=== PATIENT | female | born 1985 | race Caucasian/White ===

== ENCOUNTER 2016-08-18 22:04 | Emergency (ER) | payer OTHER ==
[~2016-08-18] VITALS: Ht 165.1 cm; Wt 54.5 kg
[2016-08-18 22:19] VITALS: TEMP 97.9
[2016-08-18 23:19] LABS: PH 6 (5-8); SQUAMOUS EPITHELIAL 0-2 /hpf; URINE APPEARANCE Clear; URINE BACTERIA None Seen /hpf; URINE BILIRUBIN Negative (NEGATIVE); URINE BLOOD Negative (NEGATIVE); URINE COLOR Straw; URINE GLUCOSE Negative (NEGATIVE); URINE KETONE Negative (NEGATIVE); URINE RBC 0-2 /hpf; URINE UROBILINOGEN Negative (NEGATIVE); URINE WBC 0-2 /hpf
[2016-08-19] MEDS ORDERED: NORCO 325 MG-51 TAB PO (00:07)
[2016-08-19 00:18] VITALS: BP 114/64; PULSE 74
== END 2016-08-19 00:18 | disposition home or self-care (01) ==
LOC: COL.ER 22:04
PROVIDERS: Emergency Medicine
DX: S20.222A Contusion of left back wall of thorax, initial encounter (principal); S20.221A Contusion of right back wall of thorax, initial encounter; W22.01XA Walked into wall, initial encounter; Y93.83 Activity, rough housing and horseplay; Y92.009 Unspecified place in unspecified non-institutional (private) residence as the place of occurrence of the external cause

== ENCOUNTER 2016-08-26 23:37 | Emergency (ER) | payer OTHER ==
[~2016-08-26] VITALS: Ht 165.1 cm; Wt 54.5 kg
[~2016-08-26 23:37] MED LIST: NORCO 325 MG-51 TAB PO
[2016-08-26 23:44] VITALS: BP 105/54; TEMP 98.2
[2016-08-27] MEDS ORDERED: ZITHROMAX 250M250 MG PO (01:33)
[2016-08-27] MEDS ORDERED: PREDNISONE20 MG PO (01:33)
[2016-08-27 01:41] VITALS: PULSE 72
== END 2016-08-27 01:43 | disposition home or self-care (01) ==
LOC: COL.ER 23:37
DX: J20.9 Acute bronchitis, unspecified (principal); F17.210 Nicotine dependence, cigarettes, uncomplicated
CPT/HCPCS: J7512

== ENCOUNTER 2017-02-25 14:34 | Emergency (ER) | payer BC ==
[~2017-02-25] VITALS: Ht 165.1 cm; Wt 54.5 kg
[~2017-02-25 14:34] MED LIST changes: +PREDNISONE20 MG PO; +ZITHROMAX 250M250 MG PO
[2017-02-25 14:38] VITALS: TEMP 98.9
[2017-02-25 16:11] LABS: PH 8 (5-8); URINE BACTERIA None Seen /hpf; URINE BILIRUBIN Negative (NEGATIVE); URINE BLOOD Negative (NEGATIVE); URINE COLOR Yellow; URINE GLUCOSE Negative (NEGATIVE); URINE KETONE Negative (NEGATIVE); URINE RBC 0-2 /hpf; URINE UROBILINOGEN Negative (NEGATIVE); URINE WBC 0-2 /hpf
[2017-02-25 16:13] LABS: URINE APPEARANCE Clear
[2017-02-25] MEDS ORDERED: FLEXERIL 1010 MG/TAB PO (16:17)
[2017-02-25 17:06] VITALS: BP 96/66; PULSE 50
== END 2017-02-25 17:05 | disposition home or self-care (01) ==
LOC: COL.ER 14:34
PROVIDERS: Physician Assistant
DX: S29.011A Strain of muscle and tendon of front wall of thorax, initial encounter (principal); M62.830 Muscle spasm of back; F17.210 Nicotine dependence, cigarettes, uncomplicated; Z90.49 Acquired absence of other specified parts of digestive tract; Z87.19 Personal history of other diseases of the digestive system; X58.XXXA Exposure to other specified factors, initial encounter

== ENCOUNTER 2017-10-20 09:29 | Emergency (ER) | payer SELFPAY ==
[~2017-10-20] VITALS: Ht 165.1 cm; Wt 68.2 kg
[~2017-10-20 09:29] MED LIST changes: +FLEXERIL 1010 MG/TAB PO; +PROTONIX 40MG T40 MG PO
[2017-10-20 09:31] VITALS: TEMP 98
[2017-10-20 10:24] LABS: COLLECTION METHOD CLEAN CATCH
[2017-10-20 10:30] LABS: PH 6 (5-8); SQUAMOUS EPITHELIAL 0-2 /hpf; URINE APPEARANCE Hazy; URINE BACTERIA None Seen /hpf; URINE BILIRUBIN Negative (NEGATIVE); URINE BLOOD Negative (NEGATIVE); URINE COLOR Yellow; URINE GLUCOSE Negative (NEGATIVE); URINE KETONE Negative (NEGATIVE); URINE LEUKOCYTE ESTERASE Negative (NEGATIVE); URINE NITRATE Negative (NEGATIVE); URINE PROTEIN(semi-quant) Negative (NEGATIVE); URINE RBC 0-2 /hpf; URINE UROBILINOGEN Negative (NEGATIVE)
[2017-10-20 10:35] LABS: BASO # 0.1 (0.0-0.2); BASO % 1.4 % (0.0-2.0); EOS # 0.3 (0.0-0.7); EOS % 4.6 % (0-4.0); GRAN # 3.5 (1.4-6.5); GRAN % 49.5 % (42.2-75.2); HEMATOCRIT 40.4 % (37.0-47.0); HEMOGLOBIN 13.1 g/dl (12.5-16.0); LYMPH # 2.3 (1.2-3.4); LYMPH % 32.2 % (20.0-51.0); MEAN CELL VOLUME 85 fl (80.0-100.0); MEAN CORPUSCULAR HEMOGLOBIN 28 pg (27.0-31.0); MEAN CORPUSCULAR HGB CONC 32 g/dl (33.0-37.0); MEAN PLATELET VOLUME 9.3 fl (7.4-10.4); MONO # 0.9 (0.1-0.6); MONO % 12.2 % (1.7-9.3); PLATELET COUNT 408 K/mm3 (130-400); RED BLOOD COUNT 4.73 M/mm3 (4.10-5.30); REDCELL DISTRIBUTION WIDTH-CV 15.3 % (11.5-14.5)
[2017-10-20 10:52] LABS: ALBUMIN 4.1 gm/dL (3.5-5.0); BILIRUBIN,TOTAL 0.2 mg/dL (0.0-1.0); CALCIUM 9.8 mg/dL (8.4-10.2); CREATININE, serum 0.54 mg/dL (0.52-1.25); MAGNESIUM 1.9 mg/dL (1.6-2.3); TOTAL PROTEIN 7.7 gm/dL (6.4-8.2)
[2017-10-20 11:22] LABS: TSH w REFLEX 0.742 uIU/mL (0.465-4.680)
[2017-10-20 12:01] VITALS: PULSE 59
== END 2017-10-20 12:00 | disposition home or self-care (01) ==
LOC: COL.ER 09:29
PROVIDERS: Physician Assistant
DX: R53.81 Other malaise (principal); R53.83 Other fatigue; Z90.49 Acquired absence of other specified parts of digestive tract; Z90.710 Acquired absence of both cervix and uterus

== ENCOUNTER → 2018-05-02 | Outpatient (CLI) | payer MEDICAID ==
[~2018-05-02] MED LIST changes: +SEROQUEL 2525 MG/TAB PO
== END ==
LOC: COL.RAD 13:30
DX: M25.562 Pain in left knee (principal)
CPT/HCPCS: J3301; Q9967

== ENCOUNTER 2018-06-16 19:56 | Emergency (ER) | payer MEDICAID ==
[~2018-06-16] VITALS: Ht 165.1 cm; Wt 56.8 kg
[2018-06-16 20:00] VITALS: BP 112/69; TEMP 98.9
[2018-06-16] MEDS ORDERED: AMOXICILLIN 8751 TAB PO (20:36)
[2018-06-16] MEDS ORDERED: PERIDEX (CHLOR480 ML MM (21:13)
[2018-06-16] MEDS ORDERED: PERCOCET 325 MG1 TA2 PO (21:42)
[2018-06-16 22:06] VITALS: PULSE 63
== END 2018-06-16 22:07 | disposition home or self-care (01) ==
LOC: COL.ER 19:56
DX: K02.9 Dental caries, unspecified (principal); K04.7 Periapical abscess without sinus; F41.9 Anxiety disorder, unspecified; F17.210 Nicotine dependence, cigarettes, uncomplicated; F12.90 Cannabis use, unspecified, uncomplicated; K58.9 Irritable bowel syndrome, unspecified
CPT/HCPCS: J0696; J1885

== ENCOUNTER → 2018-08-17 | Outpatient (CLI) | payer MEDICAID ==
[~2018-08-17] MED LIST changes: +AMOXICILLIN 8751 TAB PO; +PERCOCET 325 MG1 TA2 PO; +PERIDEX (CHLOR480 ML MM
[2018-08-17 07:55] LABS: CALCIUM 9.4 mg/dL (8.4-10.2); CREATININE, serum 0.6 mg/dL (0.52-1.25); POTASSIUM 4.2 mmol/L (3.4-5.0)
[2018-08-18 00:32] LABS: CORTISOL, AM (0800) 12 ug/dL (3-20)
[2018-08-19 11:54] LABS: STOOL SPECIMEN WEIGHT 5 g (())
[2018-08-19 12:54] LABS: FECAL FAT HOURS Random h (())
== END ==
LOC: COL.LAB 06:56
DX: E16.2 Hypoglycemia, unspecified (principal); R19.8 Other specified symptoms and signs involving the digestive system and abdomen; R19.5 Other fecal abnormalities

== ENCOUNTER 2019-01-24 17:43 | Emergency (ER) | payer OTHER ==
[~2019-01-24] VITALS: Ht 165.1 cm; Wt 61.4 kg
[2019-01-24 18:15] VITALS: TEMP 98.2
[2019-01-24] MEDS ORDERED: LATUDA40 MG PO (19:38)
[2019-01-24] MEDS ORDERED: REMERON30 MG PO (19:38)
[2019-01-24] MEDS ORDERED: RITALIN10 MG PO (19:39)
[2019-01-24 19:48] LABS: BASO # 0.1 (0.0-0.2); BASO % 1.2 % (0.0-2.0); EOS # 0.7 (0.0-0.7); EOS % 7.3 % (0-4.0); GRAN # 4.1 (1.4-6.5); GRAN % 41.7 % (42.2-75.2); HEMATOCRIT 38.3 % (37.0-47.0); HEMOGLOBIN 12.4 g/dl (12.5-16.0); LYMPH # 3.7 (1.2-3.4); LYMPH % 37.7 % (20.0-51.0); MEAN CELL VOLUME 87 fl (80.0-100.0); MEAN CORPUSCULAR HEMOGLOBIN 28 pg (27.0-31.0); MEAN CORPUSCULAR HGB CONC 32 g/dl (33.0-37.0); MEAN PLATELET VOLUME 9.2 fl (7.4-10.4); MONO # 1.1 (0.1-0.6); MONO % 11.7 % (1.7-9.3); PLATELET COUNT 424 K/mm3 (130-400); RED BLOOD COUNT 4.43 M/mm3 (4.10-5.30); REDCELL DISTRIBUTION WIDTH-CV 16.6 % (11.5-14.5)
[2019-01-24 20:03] LABS: CALCIUM 9.4 mg/dL (8.4-10.2); CREATININE, serum 0.63 (0.52-1.25); POTASSIUM 4.5 mmol/L (3.4-5.0)
[2019-01-24] MEDS ORDERED: ZITHROMAX Z PA250 MG PO (22:45)
[2019-01-24 23:05] VITALS: BP 97/64; PULSE 80
== END 2019-01-24 23:05 | disposition home or self-care (01) ==
LOC: COL.ER 17:43
PROVIDERS: Physician Assistant
DX: J20.9 Acute bronchitis, unspecified (principal); R79.1 Abnormal coagulation profile; R91.1 Solitary pulmonary nodule; F17.210 Nicotine dependence, cigarettes, uncomplicated
CPT/HCPCS: J7512; Q9967

== ENCOUNTER 2020-01-01 19:42 | Emergency (ER) | payer OTHER ==
[~2020-01-01] VITALS: Ht 165.1 cm; Wt 72.7 kg
[~2020-01-01 19:42] MED LIST changes: +LATUDA40 MG PO; +REMERON30 MG PO; +RITALIN10 MG PO; +ZITHROMAX Z PA250 MG PO
[2020-01-01] MEDS ORDERED: CEPHALEXIN500 M1 PO (20:48)
[2020-01-01] MEDS ORDERED: NORCO 325 MG-51 TAB PO (20:48)
[2020-01-01 21:21] VITALS: BP 110/75; PULSE 78; TEMP 99.6
== END 2020-01-01 21:23 | disposition home or self-care (01) ==
LOC: COL.ER 19:42
DX: H61.892 Other specified disorders of left external ear (principal); F31.9 Bipolar disorder, unspecified; F90.9 Attention-deficit hyperactivity disorder, unspecified type; K22.0 Achalasia of cardia
CPT/HCPCS: J1885

== ENCOUNTER 2020-03-03 22:04 | Emergency (ER) | payer OTHER ==
[~2020-03-03] VITALS: Ht 165.1 cm; Wt 70.5 kg
[~2020-03-03 22:04] MED LIST changes: +CEPHALEXIN500 M1 PO
[2020-03-03 22:14] VITALS: BP 116/79; TEMP 98.2
[2020-03-03] MEDS ORDERED: FLEXERIL 1010 MG/TAB PO (22:46)
[2020-03-03 23:02] VITALS: PULSE 88
== END 2020-03-03 23:03 | disposition home or self-care (01) ==
LOC: COL.ER 22:04
DX: M54.6 Pain in thoracic spine (principal); Z90.710 Acquired absence of both cervix and uterus; Z90.49 Acquired absence of other specified parts of digestive tract

== ENCOUNTER 2020-04-18 16:35 | Emergency (ER) | payer OTHER ==
[~2020-04-18] VITALS: Ht 165.1 cm; Wt 75.0 kg
[2020-04-18 16:47] VITALS: TEMP 98.3
[2020-04-18] MEDS ORDERED: ATIVAN 0.50.5 MG/TAB PO (17:35)
[2020-04-18] MEDS ORDERED: ADDERALL20 MG PO (17:35)
[2020-04-18 17:53] LABS: BASO # 0.1 (0.0-0.2); BASO % 1.1 % (0.0-2.0); EOS # 0.4 (0.0-0.7); EOS % 4.6 % (0-4.0); GRAN # 4.4 (1.4-6.5); GRAN % 49.9 % (42.2-75.2); HEMATOCRIT 37.9 % (37.0-47.0); HEMOGLOBIN 12.6 g/dl (12.5-16.0); LYMPH % 33.5 % (20.0-51.0); MEAN CELL VOLUME 89 fl (80.0-100.0); MEAN CORPUSCULAR HEMOGLOBIN 30 pg (27.0-31.0); MEAN CORPUSCULAR HGB CONC 33 g/dl (33.0-37.0); MEAN PLATELET VOLUME 9.3 fl (7.4-10.4); MONO % 10.8 % (1.7-9.3); PLATELET COUNT 342 K/mm3 (130-400); RED BLOOD COUNT 4.26 M/mm3 (4.10-5.30); REDCELL DISTRIBUTION WIDTH-CV 16.7 % (11.5-14.5)
[2020-04-18 18:07] LABS: ALBUMIN 3.8 gm/dL (3.5-5.0); BILIRUBIN,TOTAL 0.2 mg/dL (0.0-1.0); CALCIUM 9.2 mg/dL (8.4-10.2); CREATININE, serum 0.55 (0.52-1.25); POTASSIUM 4.3 mmol/L (3.4-5.0); TOTAL PROTEIN 6.5 gm/dL (6.4-8.2)
[2020-04-18 19:00] VITALS: BP 91/62; PULSE 66
== END 2020-04-18 19:10 | disposition home or self-care (01) ==
LOC: COL.ER 16:35
PROVIDERS: Physician Assistant
DX: R07.89 Other chest pain (principal); F41.9 Anxiety disorder, unspecified; F31.9 Bipolar disorder, unspecified; R06.02 Shortness of breath; F17.210 Nicotine dependence, cigarettes, uncomplicated; Z90.49 Acquired absence of other specified parts of digestive tract; Z90.710 Acquired absence of both cervix and uterus
CPT/HCPCS: J7030

== ENCOUNTER 2021-03-01 10:40 | Emergency (ER) | payer OTHER ==
[~2021-03-01] VITALS: Ht 165.1 cm; Wt 68.2 kg
[~2021-03-01 10:40] MED LIST changes: +ADDERALL20 MG PO; +ATIVAN 0.50.5 MG/TAB PO
[2021-03-01 11:02] VITALS: BP 119/77; TEMP 98.3
[2021-03-01] MEDS ORDERED: AMOXICILLIN 8751 TAB PO (11:54)
[2021-03-01 12:02] VITALS: PULSE 75
== END 2021-03-01 12:02 | disposition home or self-care (01) ==
LOC: COL.ER 10:40
DX: S61.412A Laceration without foreign body of left hand, initial encounter (principal); F41.9 Anxiety disorder, unspecified; F31.9 Bipolar disorder, unspecified; F17.210 Nicotine dependence, cigarettes, uncomplicated; Z23 Encounter for immunization; Z79.899 Other long term (current) drug therapy; W26.8XXA Contact with other sharp object(s), not elsewhere classified, initial encounter